=== PATIENT | female | born 1960 ===

== ENCOUNTER 2017-10-09 10:37 | Emergency (ER) | payer MEDICAID ==
[2017-10-09] MEDS ORDERED: Sodium Chloride 0.9% 1,000 ML IV ONE (11:27)
[2017-10-09 11:55] LABS: BASO % 0.6 % (0.0-2.0); EOS % 0.3 % (0.0-4.0); HEMOGLOBIN 15.1 g/dL (11.0-16.0); LYMPH # 0.7 K/uL (1.0-4.3); LYMPH % 19.5 % (20.0-40.0); MEAN CELL VOLUME 84.4 fL (81.0-99.0); MEAN CORPUSCULAR HEMOGLOBIN 28.5 pg (27.0-31.0); MEAN CORPUSCULAR HGB CONC 33.7 g/dL (33.0-37.0); MONO # 0.3 K/uL (0.0-0.8); MONO % 9.5 % (0.0-10.0); NEUT # 2.4 K/uL (1.8-7.0); NEUT % 70.1 % (50.0-75.0); NRBC % 0.3 % (0.0-2.0); RBC 5.29 Mil/uL (3.80-5.20); RED CELL DISTRIBUTION WIDTH 13.3 % (11.5-14.5); SQUAMOUS EPITHIAL < 1 /hpf (0-5); URINE BACTERIA RARE (<OCC); URINE BILIRUBIN NEGATIVE (NEGATIVE); URINE BLOOD NEGATIVE (NEGATIVE); URINE CLARITY Clear (Clear); URINE COLOR Yellow (YELLOW); URINE GLUCOSE (UA) 3+ mg/dL (Normal); URINE LEUKOCYTE ESTERASE NEG Leu/uL (Negative); URINE PROTEIN NEGATIVE (NEGATIVE); WHITE BLOOD COUNT 3.5 K/uL (4.8-10.8)
[2017-10-09] MEDS ORDERED: Dexamethasone 4 mg/1 ml IVP STA (11:55)
--- NOTE | 2017-10-09 12:03 | C.PDOC ---
History Of Present Illness 57 y/o female w/o significant PMHx presents to ED for evaluation of subjective fever, generalized body aches, neck pain, urinary discomfort gradually developed for past 3 days. Patient states she took antibiotic she had left at home for 2 days every 6 hours with improvement in fever. 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 Otherwise, Patient denies high fever, leathrgy, headache, dizziness, visual changes, CP, SOB, cough , dyspnea, palpitation, wheezing, abd. pain, N/V/D, change in appetite, hematuria, back pain, or any other active complaints. Ambulate to ED for evaluation, not in any apparent distress. Time Seen by Provider: 10/09/17 11:07 Chief Complaint (Nursing): Female Genitourinary History Per: Patient History/Exam Limitations: no limitations Onset/Duration Of Symptoms: Days Current Symptoms Are (Timing): Still Present Past Medical History Reviewed: Historical Data, Nursing Documentation, Vital Signs Vital Signs: Last Vital Signs Temp 99.5 F 10/09/17 13:26 Pulse 73 10/09/17 13:26 Resp 16 10/09/17 13:26 BP 124/79 10/09/17 13:26 Pulse Ox 98 10/09/17 13:26 - Medical History PMH: No Chronic Diseases Surgical History: No Surg Hx Family History: States: No Known Family Hx - Social History Hx Alcohol Use: No Hx Substance Use: No - Immunization History Hx Tetanus Toxoid Vaccination: Yes Hx Influenza Vaccination: Yes Hx Pneumococcal Vaccination: Yes Review Of Systems Constitutional: Positive for: Fever. Negative for: Chills Gastrointestinal: Negative for: Nausea, Vomiting, Abdominal Pain Genitourinary: Positive for: Other (Urinary discomfort). Negative for: Hematuria Musculoskeletal: Negative for: Back Pain Skin: Negative for: Rash Physical Exam - Physical Exam Appears: Non-toxic, No Acute Distress Skin: Warm, Dry, No Rash Head: Normacephalic Eye(s): bilateral: PERRL Ear(s): Bilateral: Normal Nose: No Flaring, No Discharge Oral Mucosa: Moist, No Drooling Throat: No Erythema, No Exudate, No Drooling Neck: Normal ROM, Trachea Midline, No Midline Cervical Tenderness, Paracervical Tenderness (diffuse B/L lateral neck tenderness over trapezium muscle with mild spasm. No palpable deformity, no midlie tenderness.), No Step Off Deformity, Supple Cardiovascular: Rhythm Regular, No Murmur, No JVD Respiratory: No Decreased Breath Sounds, No Accessory Muscle Use, No Rales, No Rhonchi, No Stridor, No Wheezing Gastrointestinal/Abdominal: Soft, No Tenderness, No Distention, No Guarding, No Rebound Back: No CVA Tenderness Extremity: Normal ROM, No Pedal Edema, Capillary Refill (<2 seconds) Neurological/Psych: Oriented x3, Normal Speech, Normal Cognition ED Course And Treatment - Laboratory Results Result Diagrams: 10/09/17 11:48 10/09/17 11:48 Lab Interpretation: Normal O2 Sat by Pulse Oximetry: 100 (RA) Pulse Ox Interpretation: Normal - Radiology CXR: Interpreted by Me, Read By Radiologist CXR Interpretation: Yes: No Acute Disease Progress Note: On re-evaluation, pt is afebrile, hemodynamicaly stable. Non- toxic. Ambulatory in ED with stable gait. PulsEOx 100% RA. ENT: no acute findings. neck: Supple, (-) meningeal sign, (-) JVD, (-) carotid bruits B/L. Lungs: CTA B/L, BS equal B/L. CVS: (+)S1S2, reg, (-)murmur. Abd: benign, (-) guarding, (-) rebound. back: (-) CVA tenderness. Neuorlogicaly intact. Blood work review- no acute abnormalities noted. CXR-normal study. Pt has clinical findings c/w URI sx, cervical strain. Pt advised. ref. to f/u with PMD in 2-3 days for re-eval. return to ED if any worsening or new changes. Disposition Counseled Patient/Family Regarding: Studies Performed, Diagnosis, Need For Followup, Rx Given - Disposition Referrals: [facility] [Outside] Disposition: HOME/ ROUTINE Disposition Time: 12:51 Condition: STABLE Additional Instructions: Encourage fluids Take medication as prescribed Follow up with PMD in 2-3 days for re-evaluation. return to ED if any worsening or new changes. 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 - Scribe Statement The provider has reviewed the documentation as recorded by the Julitoibchristy Parish All medical record entries made by the Scott were at my direction and personally dictated by me. I have reviewed the chart and agree that the record accurately reflects my personal performance of the history, physical exam, medical decision making, and the department course for this patient. I have also personally directed, reviewed, and agree with the discharge instructions and disposition.
[2017-10-09 12:05] LABS: ALB/GLOB RATIO 1.4 (1.0-2.1); ALBUMIN 4.2 g/dL (3.5-5.0); ALT/SGPT 56 U/L (9-52); AST/SGOT 56 U/L (14-36); BLOOD UREA NITROGEN 9 mg/dL (7-17); CALCIUM 9.5 mg/dl (8.6-10.4); GFR AFRICAN-AMERICAN > 60; GFR NON-AFRICAN AMERICAN > 60; LIPASE 143 U/L (23-300)
--- NOTE | 2017-10-09 12:21 | RAD ---
HISTORY: COMPARISON: 10/09/2017. TECHNIQUE: Chest PA and lateral FINDINGS: LINES AND TUBES: None. LUNG AND PLEURA: The lungs are well inflated and clear. No pleural effusion or pneumothorax. HEART AND MEDIASTINUM: The heart is not enlarged. The hilar and mediastinal contours are within normal limits. SKELETAL STRUCTURES: The bony structures are within normal limits for the patient's age. VISUALIZED UPPER ABDOMEN: Normal. OTHER FINDINGS: None. IMPRESSION: No active pulmonary disease.
[2017-10-09] MEDS ORDERED: Dexamethasone 4 mg/1 ml ONE (13:19)
[2017-10-09 13:28] VITALS: BP 124/79; PULSE 73; RESP 16; TEMP 99.5
[2017-10-09 16:36] VITALS: O2SAT 100
== END 2017-10-09 13:27 | disposition home or self-care (01) ==
LOC: C.ER 10:37
DX: S16.1XXA Strain of muscle, fascia and tendon at neck level, initial encounter (principal); X50.9XXA Other and unspecified overexertion or strenuous movements or postures, initial encounter; Y92.63 Factory as the place of occurrence of the external cause; Y99.0 Civilian activity done for income or pay; B34.9 Viral infection, unspecified
CPT/HCPCS: 71046; 80053; 81001; 83690; 85025; 87086; 96361; 96374; 96375; 99284; J1100; J1885; J2405; J7030

== ENCOUNTER 2017-10-16 07:08 | Emergency (ER) | payer MEDICAID ==
[2017-10-16 07:17] VITALS: BP 126/79; PULSE 69; RESP 20; TEMP 98.1; O2SAT 99
--- NOTE | 2017-10-16 07:48 | C.PDOC ---
History Of Present Illness 57yo female, comes to ER complaining of persistent back pain. Patient was seen in this ER on 10/09 and was evaluated for back pain, given muscle relaxer, tramadol and Motrin, which she states she has not taken. Patient additionally states she "never got an XRay" during her last visit and wants to "find out exactly why" she has back pain. Otherwise, she denies any fever, chills, numbness, weakness, incontinence and offers no other complaints. Time Seen by Provider: 10/16/17 07:21 Chief Complaint (Nursing): Back Pain History Per: Patient History/Exam Limitations: no limitations Onset/Duration Of Symptoms: Days Current Symptoms Are (Timing): Still Present Quality Of Discomfort: "Pain" Severity: Mild Previous Symptoms: Back Pain Associated Symptoms: None. denies: Incontinence, New Weakness, New Numbness Recent travel outside of the [place]: No Past Medical History Reviewed: Historical Data, Nursing Documentation, Vital Signs Vital Signs: Last Vital Signs Temp 98.1 F 10/16/17 07:12 Pulse 69 10/16/17 07:12 Resp 20 10/16/17 07:12 BP 126/79 10/16/17 07:12 Pulse Ox 99 10/16/17 08:15 - Medical History PMH: No Chronic Diseases Surgical History: No Surg Hx Family History: States: No Known Family Hx - Social History Hx Alcohol Use: No Hx Substance Use: No - Immunization History Hx Tetanus Toxoid Vaccination: Yes Hx Influenza Vaccination: Yes Hx Pneumococcal Vaccination: Yes Review Of Systems Except As Marked, All Systems Reviewed And Found Negative. Constitutional: Negative for: Fever, Chills Genitourinary: Negative for: Incontinence Musculoskeletal: Positive for: Back Pain Neurological: Negative for: Weakness, Numbness Physical Exam - Physical Exam Appears: Non-toxic, No Acute Distress Skin: Warm, Dry Head: Normacephalic Eye(s): bilateral: Normal Inspection Oral Mucosa: Moist Neck: Normal ROM, Supple Chest: Symmetrical Cardiovascular: Rhythm Regular Respiratory: Normal Breath Sounds Gastrointestinal/Abdominal: Normal Exam, Soft, No Tenderness Back: Normal Inspection, No Vertebral Tenderness Extremity: Normal ROM, No Tenderness, No Deformity, No Swelling Extremity: Bilateral: Atraumatic, No Pedal Edema, Normal ROM Neurological/Psych: Oriented x3, Normal Speech, Normal Cognition, Normal Motor, Normal Sensation Gait: Steady ED Course And Treatment O2 Sat by Pulse Oximetry: 99 (RA) Pulse Ox Interpretation: Normal - Other Rad No standard instances X-Ray: Interpreted by Me Interpretation: LS spine: no fracture Progress Note: Patient given Motrin 600mg PO. XR Lumbar spine ordered. Patient advised to follow up at clinic for further evaluation and take medications as directed Reassessment Condition: Improved Disposition Counseled Patient/Family Regarding: Diagnosis, Need For Followup - Disposition Referrals: [facility] [Outside] [facility] [Outside] [facility] [Outside] Disposition: HOME/ ROUTINE Disposition Time: 08:15 Condition: GOOD Additional Instructions: Follow up with the clinic for further evaluation Instructions: Low Back Pain in Adults, Back Exercises Forms: [employer] (Bulgarian) Print Language: [email or web address] - POA Present On Arrival: None - Clinical Impression Clinical Impression: Low back pain, Low back strain, Cervical strain - 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 - Scribe Statement The provider has reviewed the documentation as recorded by the Scott Ramirez Provider Attestation: All medical record entries made by the Scott were at my direction and personally dictated by me. I have reviewed the chart and agree that the record accurately reflects my personal performance of the history, physical exam, medical decision making, and the department course for this patient. I have also personally directed, reviewed, and agree with the discharge instructions and disposition.
--- NOTE | 2017-10-16 10:52 | RAD ---
Date of service: 10/16/2017 PROCEDURE: Radiographs of the Lumbar Spine. HISTORY: Back pain COMPARISON: No prior. FINDINGS: BONES: There is normal alignment of the lumbar vertebral bodies. There is normal lumbar lordosis. There is no acute fracture, spondylolysis or spondylolisthesis. Bone mineralization is normal. DISC SPACES: There is mild multilevel degenerative disc disease with anterior spurring, reduced disc heights and multilevel facet arthropathy, worse at L2-3. OTHER FINDINGS: There are no pathologic soft tissue calcifications. Both sacroiliac joints are normal. IMPRESSION: No acute fracture, spondylolysis or spondylolisthesis. Mild multilevel degenerative disc disease, worse at L2-3.
== END 2017-10-16 08:20 | disposition home or self-care (01) ==
LOC: C.ER 07:08
DX: S39.012A Strain of muscle, fascia and tendon of lower back, initial encounter (principal); S16.1XXA Strain of muscle, fascia and tendon at neck level, initial encounter; X58.XXXA Exposure to other specified factors, initial encounter; Y92.9 Unspecified place or not applicable